=== PATIENT | female | born 1965 | race Caucasian/White ===

== ENCOUNTER 2020-01-05 18:19 | Outpatient (CLI) | payer OTHER, SELFPAY ==
--- NOTE | ~2020-01-05 | XR_ITS ---
EXAMINATION: XR shoulder LT min 2V DATE: 01/05/2020 18:45 INDICATION: Left shoulder pain TECHNIQUE: AP internally and externally rotated, AP oblique externally rotated and axillary views of the left shoulder were obtained. COMPARISON: None FINDINGS: Normal alignment. No fracture. Glenohumeral joint is normal. Acromioclavicular joint is normal. Soft tissues are unremarkable. Visualized lungs are clear. IMPRESSION: Negative left shoulder radiographs. Reviewed, dictated and finalized at location A. GUARD
== END 2020-01-05 18:20 | disposition home or self-care (01) ==
LOC: ANHIMG 18:21
PROVIDERS: PCP Family Medicine; Visit Provider Orthopaedic Surgery
DX: M25.512 Pain in left shoulder (principal)
CPT/HCPCS: 73030

== ENCOUNTER 2020-04-16 15:30 | Outpatient (RCR) | payer OTHER, SELFPAY ==
[2020-01-25 12:32] VITALS: BP_SYST 110
--- NOTE | 2020-01-25 16:07 | PTOPEVAL ---
Thank you for referring this patient to [facility]. Please review, sign, date and return this plan of care ANMOL. Pt referred to therapy due to left shoulder adhesive capsulitis. She demonstrates impairments related to left shoulder range, strength, pain and function. Requires additional skilled PT 2-3x/wk x 8 wk. I agree with and certify that the following plan of care is medically necessary. Referring Physician Date Attending Provider: Suhas Contreras MD Referring Provider: *PT Outpatient Evaluation Start: 01/25/20 12:31 Freq: Status: Active Protocol: Document 01/25/20 12:32 CAP (Rec: 01/25/20 13:29 CAP [email or web address]) Therapy Assessment Status Assessment Status Assessment Status Evaluation Outpatient Past Medical History Past Medical History Past Medical History Status Patient Denies Significant Past Medical History Evaluation Information Problem Diagnosis left shoulder adhesive capsulitis Onset 09/17 Cause following injections Subjective Information Reports her left shoulder Query Text:As Reported By Patient/ problems started after she Family received the flu shot. The MD believes the injection was given into the shoulder joint vs the muscles. She reports problems with reaching of left UE in all direction. She is unable to reach overhead. She has difficulty with sleeping regardless of position. She is limited with her workout routine due to the pain. She has difficulty with ADL's. Denies pain changes with sitting or driving. She received a cortison injection on 01/12/20 with improved pain and toyin with reaching act. 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
--- NOTE | 2020-02-07 16:44 | PCPTNOTE ---
Patient did not show up for scheduled appointment this date.
--- NOTE | 2020-02-21 12:40 | PCPTNOTE ---
Patient just called & rescheduled appointment this date due to a meeting.[ ]
[2020-02-23 12:41] VITALS: BP_SYST 140
--- NOTE | 2020-02-23 13:37 | PTOPEVAL ---
Thank you for referring this patient to [facility]. Please review, sign, date and return this plan of care ANMOL. Pt demonstrates progress with impairments related to left shoulder. She demonstrates improved range, strength, and function. She requires additional skilled therapy 2x/wk x 6 wk to achieve therapy goals. I agree with and certify that the following plan of care is medically necessary. Referring Physician Date Attending Provider: Suhas Contreras MD Referring Provider: *PT Outpatient Re-Evaluation Start: 01/25/20 12:31 Freq: Status: Active Protocol: Document 02/23/20 12:41 CAP (Rec: 02/23/20 13:25 CAP [email or web address]) Therapy Assessment Status Assessment Status Assessment Status Re-evaluation Evaluation Information Problem Diagnosis left shoulder adhesive capsulitis Onset 09/17 Subjective Information Reports cont pain and Query Text:As Reported By Patient/ limitations with reaching in Family all directions. She is able to reach further overhead. She is able to don her bra and coat better. she is limited with her toyin with her normal fitness routine due to pain with overhead or reaching motion. Her current HEP cont to be limited and painful. She will wake with UE pain depending on her UE position. Pain Assessment Timing of Pain Assessment Timing of Pain Assessment Re-assessment Pain Scale Pain Scale Used Numeric (1 - 10) Self Report Pain Assessment Left Shoulder(s) Reported Pain Level 2 Pain Description Aching,Tender on Palpation, Tightness Pain Frequency Continuous Lowest Pain Intensity 2 Greatest Pain Intensity 10 Pain Aggravating Factors Prolonged Position,Other Pain Aggravating Factors Other Pain Aggravating Factors movement Pain Behaviors None Pain Relief Interventions Used By Inactivity/Rest,TENS Patient Pain Score Pain Score 2: Self Report Upper Extremity Range of Motion Scapular/ Shoulder Range of Motion Left Scapular: Retraction Hypomobile Scapular: Protraction Hypermobile Scapular Downward Rotation Hypomobile Scapular Upward Rotation Hypomobile Shoulder Flexion - Active 138 Shoulder Flexion - Passive 145 Shoulder Extension - Active 35 Shoulder Abduction - Act
--- NOTE | 2020-03-23 16:11 | PTOPEVAL ---
Thank you for referring Alison Barahona to [facility]. Please review, sign, date and return this plan of care ANMOL. Pt has been seen for 15 therapy visits from 01/25/20-03/23/20 to address impairments related to left shoulder. She demonstrates significant progress with shoulder range, pain and UE function. She continues to demonstrate shoulder and scapular weakness that requires additional skilled therapy. Recommend cont PT 1x/wk x 4 wk. I agree with and certify that the following plan of care is medically necessary. Referring Physician Date Attending Provider: Suhas Contreras MD Referring Provider: *PT Outpatient Evaluation Start: 01/25/20 12:31 Freq: Status: Active Protocol: Document 03/23/20 13:28 HELENE (Rec: 03/23/20 14:10 HELENE [email or web address]) Therapy Assessment Status Assessment Status Re-evaluation Evaluation Information Problem Diagnosis left shoulder adhesive capsulitis Onset 09/17 Cause following injections Subjective Information Cont pain with reaching Query Text:As Reported By Patient/ overhead and behind her back. Family States she is still limited with these motions. She is able to don her bra and coat better. She reports improved shoulder motion after stretching. She reports improved toyin with fitness program with arm motion. She is not having diffuclty with work activities or sleeping. Pain Assessment Timing of Pain Assessment Timing of Pain Assessment Assessment Pain Scale Pain Scale Used Numeric (1 - 10) Self Report Pain Assessment Left Shoulder(s) Reported Pain Level 0 Pain Description With Movement Pain Frequency Intermittent Lowest Pain Intensity 0 Greatest Pain Intensity 10 Pain Score Pain Score 0: Self Report Upper Extremity Range of Motion Scapular/ Shoulder Range of Motion Left Scapular: Retraction Hypomobile Scapular: Protraction Hypermobile Scapular Downward Rotation Hypomobile Scapular Upward Rotation Hypomobile Shoulder Flexion - Active 160 Shoulder Extension - Active 50 Shoulder Abduction - Active 164 Shoulder Medial Rotation - Active 70 Shoulder Medial Rotation - Active T8 Query Text:Reach Behind the Back Shoulder Lateral Rotation - Active 74 Shoulder Lateral Rotation - Active T1 Query Text:Reach Behind the Head Scapular/Shoulder Range of Pradeep
--- NOTE | 2020-04-16 16:24 | PTOPEVAL ---
Thank you for referring Alison Barhaona to [facility]. Please review, sign, date and return this plan of care ANMOL. Pt has received 19 therapy visits to address left shoulder impairments. She reports improved pain and UE function with daily activities. She demonstrates normal shoulder range and strength. She is indep with a HEP to maintain her level of function. Goals have been met. DC skilled therapy at this time. I agree with and certify that the following plan of care is medically necessary. Referring Physician Date Attending Provider: Suhas Contreras MD Referring Provider: Discharge Summary *PT Outpatient Evaluation Start: 01/25/20 12:31 Freq: Status: Active Protocol: Document 04/16/20 15:36 CAP (Rec: 04/16/20 16:16 [facility] [email or web address]) Therapy Assessment Status Assessment Status Assessment Status Re-evaluation Evaluation Information Problem Diagnosis left shoulder adhesive capsulitis Onset 09/17 Cause following injections Subjective Information Reports she has been Query Text:As Reported By Patient/ inconsistent with performing Family her HEP. Reports intermittent sharp shoulder pain with various reaching motions. Denies any problems with donning/doffing clothes. States she will have occasional sharp shoulder pain with various reaching motions . She is not having diffuclty with work activities or sleeping. Pain Assessment Timing of Pain Assessment Timing of Pain Assessment Re-assessment Pain Scale Pain Scale Used Numeric (1 - 10) Self Report Pain Assessment Left Shoulder(s) Reported Pain Level 0 Pain Description Sharp Pain Frequency Intermittent Lowest Pain Intensity 0 Greatest Pain Intensity 9 Pain Aggravating Factors Other Pain Aggravating Factors Other Pain Aggravating Factors reaching motion Pain Score Pain Score 0: Self Report Upper Extremity Range of Motion Scapular/ Shoulder Range of Motion Right Shoulder Flexion - Active 170 Shoulder Extension - Active 35 Shoulder Abduction - Active 170 Shoulder Medial Rotation - Active 70 Shoulder Medial Rotation - Active T8 Query Text:Reach Behind the Back Shoulder Lateral Rotation - Active 90 Shoulder Lateral Rotation - Active T2 Query Text:Reach Behind the Head Left Scapular: Retraction Hypomobile Scapular: Protraction Hypermobile Scapular Downward Rotation
== END 2020-04-18 08:33 | disposition home or self-care (01) ==
LOC: ANHPT 15:30
PROVIDERS: PCP Family Medicine; Visit Provider Orthopaedic Surgery
DX: M75.02 Adhesive capsulitis of left shoulder (principal)
CPT/HCPCS: 97014; 97110; 97112; 97140; 97161; G0283

== ENCOUNTER 2020-05-08 07:30 | Outpatient (CLI) | payer OTHER, SELFPAY ==
[2020-05-08 09:28] LABS: Free T4 Free Thyroxine 0.69 ng/mL (0.78-2.19)
[2020-05-10 21:56] LABS: Triiodothyronine T3 Free 5.5 pg/mL (2.3-4.2)
== END 2020-05-08 07:31 | disposition home or self-care (01) ==
PROVIDERS: PCP Family Medicine; Visit Provider Internal Medicine Endocrinology, Diabetes & Metabolism
DX: E03.9 Hypothyroidism, unspecified (principal); E04.1 Nontoxic single thyroid nodule
CPT/HCPCS: 36415; 84439; 84443; 84481

== ENCOUNTER 2020-07-27 13:10 | Outpatient (CLI) | payer OTHER, SELFPAY ==
--- NOTE | ~2020-07-27 | US_ITS ---
EXAMINATION: US thyroid DATE: 07/27/2020 13:40 INDICATION: Hypothyroidism TECHNIQUE: Multiple ultrasound images of the thyroid were obtained. COMPARISON: 11/20/18 FINDINGS: The right thyroid lobe measures 2.6 x 0.8 x 0.6 cm. The left thyroid lobe measures 2.2 x 1.0 x 0.7 c m. 7 x 5 x 4 mm wider than tall slightly hypoechoic solid nodule with smooth margins and without ech ogenic foci. (TI-RADS 4, moderately suspicious , FNA if >=1.5 cm, annual followup is >1 cm) in the mi d right thyroid. There is normal echotexture, echogenicity and vascular flow throughout the thyroid g land. IMPRESSION: 1. No significant interval change in a 7 mm TI RADS 4 right thyroid nodule which remains below consen t cysts threshold for biopsy or follow-up. Recommend clinical followup with repeat imaging if there a re changes on physical exam. 2. Chronically atrophic thyroid. Reviewed, dictated and finalized at location A. IMPRESSION: 1. No significant interval change in a 7 mm TI RADS 4 right thyroid nodule whic h remains below consent cysts threshold for biopsy or follow-up. Recommend clin ical followup with repeat imaging if there are changes on physical exam. 2. Chronically atrophic thyroid.
== END 2020-07-27 13:11 | disposition home or self-care (01) ==
PROVIDERS: PCP Family Medicine; Visit Provider Internal Medicine Endocrinology, Diabetes & Metabolism
DX: E03.9 Hypothyroidism, unspecified (principal); E04.1 Nontoxic single thyroid nodule
CPT/HCPCS: 76536

== ENCOUNTER 2020-08-22 11:45 | Outpatient (CLI) | payer OTHER, SELFPAY ==
--- NOTE | ~2020-08-22 | MR_ITS ---
EXAMINATION: MR shoulder LT wo con DATE: 08/22/2020 12:58 INDICATION: Left shoulder pain. TECHNIQUE: Magnetic resonance imaging (MRI) of the left shoulder was performed without intravenous co ntrast. Sequences included axial PD-weighted FS FSE, coronal oblique PD-weighted FS FSE and T2-weight ed FS FSE, and sagittal oblique T2-weighted FS FSE and T1-weighted FSE. COMPARISON: Left shoulder radiographs 01/05/2020 FINDINGS: Coracoacromial arch: The acromion undersurface is flat in morphology (type I). Subacromial spurring is noted. The acromioc lavicular joint is normal. There is mild subacromial/subdeltoid bursitis. Rotator cuff: There is mild supraspinatus tendinopathy. Infraspinatus, teres minor, and subscapularis tendons are n ormal. There is no asymmetric fatty atrophy of the rotator cuff muscle bellies. Biceps tendon and glenoid labrum: Biceps tendon is in bicipital groove. There is mild intra-articular biceps tendinopathy. The glenoid labrum is normal. Fluid: There is no glenohumeral joint effusion. Bones/cartilage: The glenoid cartilage is normal. Humeral head cartilage is normal. IMPRESSION: 1. Mild rotator cuff tendinopathy. No tear. 2. Mild intra-articular biceps tendinopathy. 3. Mild subacromial/subdeltoid bursitis. Reviewed, dictated and finalized at location A.
[2020-08-22 12:21] LABS: Hematocrit 34.5 % (37.0-47.0); Hemoglobin 11.3 g/dL (12.0-15.0); Mean Corpuscular HGB Conc 32.8 g/dl (32-36); Mean Corpuscular Hemoglobin 27.9 pg (26-34); Mean Corpuscular Volume 85.2 fl (80-100); Mean Platelet Volume 11.3 fl (7.4-10.4); Platelet Count Result 179 k/mm3 (150-375); Red Blood Count 4.05 M/mm3 (4.2-5.4); Red Cell Distribution Width 13.7 % (11.5-14.5); White Blood Count 3.3 K/mm3 (4.5-10.0)
[2020-08-22 12:38] LABS: Alanine Aminotransferase 17 U/L (4-35); Albumin Level 4.3 g/dL (3.5-5.1); Alkaline Phosphatase 62 U/L (38-126); Anion Gap 5 mmol/L (8-16); Aspartate Amino Transferase 30 U/L (14-36); Bilirubin,Total 0.3 mg/dL (0.2-1.3); Blood Urea Nitrogen 27 mg/dL (7-17); Calcium 9.1 mg/dL (8.4-10.2); Carbon Dioxide 31 mmol/L (22-30); Chloride 103 mmol/L (98-107); Estimated Glomerular Filt Rate > 60; Glucose 70 mg/dL (65-105); Potassium 3.9 mmol/L (3.4-5.0); Sodium 139 mmol/L (137-145)
[2020-08-22 13:04] LABS: Free T4 Free Thyroxine 0.57 ng/mL (0.78-2.19)
== END 2020-08-22 11:46 | disposition home or self-care (01) ==
PROVIDERS: PCP Family Medicine; Referring Provider Internal Medicine Endocrinology, Diabetes & Metabolism; Visit Provider Orthopaedic Surgery
DX: E03.9 Hypothyroidism, unspecified (principal); M75.52 Bursitis of left shoulder
CPT/HCPCS: 36415; 73221; 80053; 84439; 84443; 85027

== ENCOUNTER → 2021-04-05 00:26 | Outpatient (CLI) | payer OTHER, SELFPAY ==
[2021-04-05 18:42] LABS: SARS-CoV-2 RNA PCR Negative
== END ==
PROVIDERS: PCP Family Medicine; Visit Provider Orthopaedic Surgery
DX: Z01.812 Encounter for preprocedural laboratory examination (principal); Z20.822 Contact with and (suspected) exposure to COVID-19
CPT/HCPCS: C9803; U0003; U0005

== ENCOUNTER 2021-04-08 01:44 | Day surgery (SDC) | payer OTHER, SELFPAY ==
[2021-04-01 14:55] VITALS: BMI 19.8
[2021-04-08] VITALS (7 sets, daily range): BP systolic 93–121; BP diastolic 56–91; PULSE 57–82; RESP 12–18; TEMP 36.3–36.9; O2SAT 96–100; BMI 19.5
--- NOTE | 2021-04-08 07:50 | P.PNAN_ITS ---
Anes - Initial Pre Proc Eval Procedure: Operation Date: 04/08/21 09:00 Proposed Procedures p Left Shoulder Evaluation Under Anesthesia with Cortisone Injection - Suhas Contreras MD Date/Time: 04/08/21 07:50 Surgeon: Suhas Contreras MD Pre Op Diagnosis: left frozen shoulder Patient Data Age: 55 Gender: F Height: 1.55 m Weight: 47.65 kg Allergies Allergy/AdvReac Type Severity Reaction Status Date / Time cefuroxime AdvReac Mild Gastrointestinal Verified 04/08/21 07:20 Upset Home Medications Medication Instructions Recorded Confirmed Type Lactobacillus combo no.23 14 14 cell PO DAILY 01/12/20 04/04/21 History billion cell capsule cholecalciferol (vitamin D3) 50 2,000 unit PO DAILY 01/12/20 04/04/21 History mcg (2,000 unit) capsule digestive enzymes 1 tablet PO DAILY 01/12/20 04/04/21 History melatonin 5 mg capsule 5 mg PO PRN PRN 01/12/20 04/04/21 History multivitamin 1 tablet PO DAILY 01/12/20 04/04/21 History omega-3 fatty acids-fish oil 340 1 cap PO DAILY 01/12/20 04/04/21 History mg-1,000 mg capsule thyroid (pork) 60 mg tablet 60 mg PO DAILY #90 tablet 01/31/21 04/04/21 Rx sertraline 2.5 mg PO DAILY 04/01/21 04/04/21 History Patient hx anesthesia problems: none Family hx anesthesia problems: none PMFSH Past Medical History Medical History (Updated 04/08/21 @ 07:14 by Crow Amezcua DO) Arthritis Depression Hypothyroidism (acquired) Surgical History Surgical History History of oophorectomy Hx of tonsillectomy Social History Social History Smoking status: Never smoker Alcohol intake: never Living arrangements: with family Additional living arrangements comments: and Children 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 Gender identity (if verbalized by the patient): Female Spiritual care concerns: No Anes - Eval Final PreProcedure Day of Procedure 04/08/21 07:50 Patient weight: thin Heart: regular rate and rhythm Lungs: clear to auscultation and normal air movement Airway: Mallampati scale class II Neurological: alert and oriented Last oral intake: >/= 8 hours ASA classification: II Emergent: no Anesthetic plan: proceed Anesthesia type and monitoring: general and standard monitoring Informed Consent: The patient's anesthetic plan and its attendant risks and benefits were discussed with the patient/family/POA. Questions were solicited and answers provided to the satisfaction of the patient/family/POA.
[2021-04-08] MEDS: ACETAMINOPHEN 500 MG TABLET 1000 MG PO (08:13)
[2021-04-08] MEDS: LACTATED RINGERS 1,000 ML 30 ML IV CONT (08:13)
[2021-04-08] MEDS: KETOROLAC 15 MG/ML VIAL (*BKC) IV PUSH (08:14)
--- NOTE | 2021-04-08 08:31 | WPDHPUPDATE1 ---
History and Physical Update Update Date/Time: 04/08/21 08:31 History and Physical has been reviewed, including an updated exam of the patient. There are NO changes in the patient's condition. Risks, benefits, and alternatives have been discussed and questions answered. Patient agrees to proceed with procedure.
[2021-04-08] MEDS: ceFAZolin 2 GM/D5W 50 ML 2 GM/50 ML BAG IVPB (08:50)
[2021-04-08] MEDS: TRIAMCINOLONE ACET INJ SUSP 50 MG/5 ML VIAL 20 MG IM (09:01)
--- NOTE | 2021-04-08 09:14 | PM.PROC ---
Procedure Note - Detailed Date of procedure: 04/08/21 Pre-op diagnosis: left frozen shoulder Post-op diagnosis: same Procedure performed: Left shoulder evaluation under anesthesia with manipulation and intra-articular injection Description of procedure: The patient was identified and proper site identified. She was taken back to the operating room and left on the patient gurney. After general IV sedation was administered, the left shoulder was evaluated. Initial elevation was 120?, internal rotation 15?, external rotation 45?. After a gentle manipulation range of motion was again assessed. Elevation was 180?, external rotation 90?, internal rotation 80?. This was carried out in an atraumatic fashion. The shoulder joint was then injected intra-articularly with 2 mL of 1% lidocaine and 20 mg of Kenalog without incident. She tolerated the procedure well. She was awakened and taken back to recovery area in stable condition. There were no known intraoperative complications. Surgeon: Suhas Contreras MD Estimated blood loss (mL): 0 Drains: No Packing: No Pathology: none sent Complications: No immediate complications Condition: stable Disposition: PACU
[2021-04-08] MEDS: fentaNYL CITRATE INJ (*CRX) 100 MCG/2 ML VIAL 25 MCG IV PUSH ×2 (09:31→10:00)
== END 2021-04-08 10:50 | disposition home or self-care (01) ==
PROVIDERS: PCP Family Medicine; Visit Provider Orthopaedic Surgery
PROC: (CPT 23700; principal; 2021-04-08 09:00)
DX: M75.02 Adhesive capsulitis of left shoulder (principal); E03.9 Hypothyroidism, unspecified; F32.9 Major depressive disorder, single episode, unspecified
CPT/HCPCS: 23700; A9270; C9803; J0690; J1030; J1040; J1100; J1170; J1885; J2250; J2405; J2704; J3010; J3301; J7120; U0003; U0005

== ENCOUNTER 2021-07-22 13:47 | Outpatient (CLI) | payer SELFPAY ==
[2021-08-13 11:32] LABS: Kit Draw Collected
== END 2021-07-22 13:48 | disposition home or self-care (01) ==
PROVIDERS: PCP Family Medicine
DX: M04.9 Autoinflammatory syndrome, unspecified (principal); E61.1 Iron deficiency; F06.8 Other specified mental disorders due to known physiological condition
CPT/HCPCS: 36415

== ENCOUNTER → 2021-07-30 13:10 | Outpatient (CLI) | payer OTHER, SELFPAY ==
--- NOTE | ~2021-07-30 | DEXA_ITS ---
Bone Density Report Name: Alison Barahona Age: 55 Sex: Female Ethnicity: White Date of : 1965 Indication: postmenopausal; screening for osteoporosis; Referring Provider: BARAK, RODNEY Study: Bone densitometry was performed. Exam Date: July 30, 2021 Accession number: [id number] Bone Density: Region BMD T-score Z-score Classification AP Spine (L1-L4) 0.931 -1.1 0.2 Osteopenia Femoral Neck (Left) 0.620 -2.1 -0.9 Osteopenia Total Hip (Left) 0.793 -1.2 -0.4 Osteopenia Femoral Neck (Right) 0.613 -2.1 -1.0 Osteopenia Total Hip (Right) 0.762 -1.5 -0.7 Osteopenia Total Hip Mean 0.778 -1.4 -0.6 Osteopenia World Health Organization criteria for BMD impression classify patients as: Normal (T-score at or above -1.0), Osteopenia (T-score between -1.0 and -2.5), or Osteoporosis (T-score at or below -2.5). 10-year Fracture Risk(1): Major Osteoporotic Fracture 7.6% Hip Fracture 1.0% Reported Risk Factors: [place] (), Neck BMD=0.613, BMI=19.2 (1) FRAX(R) Version 3.08. Fracture probability calculated for an untreated patient. Fracture probability may be lower if the patient has received treatment. Clinical Information Provided by Patient: Has used the following medications: Vitamin D Patient maximum height was 62 Menopause Age: 43 Does not regularly consume dairy products Onset of menses at age 11 Number of children 2 Impression: The patient has low bone mass, based on the Left Femoral Neck T-score. The patient has an estimated ten-year risk of hip fracture of 1% and an estimated ten-year risk of major fracture of 7.6%, based on the WHO FRAX algorithm. Discussion: BONE DENSITY IS LOW AT ONE OR MORE SKELETAL SITES. This patient's lowest T-score is low at one or more skeletal sites. It meets the World Health Organization's (WHO) criteria for ?low bone mass? (T-score between -1.0 and -2.5). The patient's 10-year risk of fracture as calculated by FRAX is less than the threshold where pharmacological therapy is recommended by the National Osteoporosis Foundation (NOF). However, all treatment decisions require clinical judgment and consideration of individual patient factors, including patient preferences, comorbidities, previous drug use, risk factors not captured in the FRAX model (e.g., frailty, falls, vitamin D deficiency, increased bone turnover, interval significant decline in bone density) and possible under or overestimation of fracture risk by FRAX. The patient should follow a healthful lifestyle (good nutrition with adequate calcium and vitamin D, and appropriate weight-bearing exercise). Follow-Up: Consider repeating this study in 2 to 3 years to reassess this patient's status, or sooner if there is some new clinical indication. Reported by: TYRELL on 07/30/2021 1:42:00 PM.
== END ==
PROVIDERS: PCP Family Medicine; Visit Provider Nurse Practitioner
DX: M85.88 Other specified disorders of bone density and structure, other site (principal); M85.852 Other specified disorders of bone density and structure, left thigh; M85.851 Other specified disorders of bone density and structure, right thigh
CPT/HCPCS: 77080

== ENCOUNTER → 2021-10-03 14:02 | Outpatient (CLI) | payer OTHER, SELFPAY ==
--- NOTE | ~2021-10-03 | XR_ITS ---
XR elbow LT 2V DATE: 10/03/2021 14:50 INDICATION: Multiple joint pain. Left elbow pain. TECHNIQUE: AP and lateral views COMPARISON: 10/06/2017 left elbow FINDINGS: No fracture or dislocation or joint effusion. No periosteal reaction or bone destruction. IMPRESSION: Negative Reviewed, dictated and finalized at location A. IMPRESSION: Negative
--- NOTE | ~2021-10-03 | XR_ITS ---
XR hand LT 2V DATE: 10/03/2021 14:50 INDICATION: Multiple joint pain. Left hand pain. TECHNIQUE: AP and lateral views COMPARISON: None FINDINGS: No fracture or dislocation, periosteal reaction or bone destruction, erosive change or pratibha drocalcinosis. IMPRESSION: No significant abnormality Reviewed, dictated and finalized at location A. IMPRESSION: No significant abnormality
--- NOTE | ~2021-10-03 | XR_ITS ---
XR knee RT 2V DATE: 10/03/2021 14:50 INDICATION: Multiple joint pain. Right knee pain. TECHNIQUE: Standing AP and lateral views COMPARISON: None FINDINGS: There is slight particular spurring of the patella consistent with osteoarthritis. No fract ure or dislocation or joint effusion. No periosteal reaction or bone destruction. No radiopaque intra -articular loose body or chondrocalcinosis. IMPRESSION: Patellofemoral slight osteoarthritis Reviewed, dictated and finalized at location A.
--- NOTE | ~2021-10-03 | XR_ITS ---
XR elbow RT 2V DATE: 10/03/2021 14:50 INDICATION: Multiple joint pain. Right elbow pain. TECHNIQUE: AP and lateral views COMPARISON: None FINDINGS: No fracture or dislocation or joint effusion. No periosteal reaction or bone destruction. IMPRESSION: Negative Reviewed, dictated and finalized at location A. IMPRESSION: Negative
--- NOTE | ~2021-10-03 | XR_ITS ---
XR hand RT 2V DATE: 10/03/2021 14:51 INDICATION: Multiple joint pain. Right hand pain. TECHNIQUE: AP and lateral views COMPARISON: None FINDINGS: No fracture, dislocation, periosteal reaction or bone destruction, joint space narrowing, e rosive change or chondrocalcinosis. IMPRESSION: Negative Reviewed, dictated and finalized at location A. IMPRESSION: Negative
--- NOTE | ~2021-10-03 | XR_ITS ---
XR knee LT 2V DATE: 10/03/2021 14:50 INDICATION: Multiple joint pain. Left knee pain. TECHNIQUE: Standing AP and lateral views COMPARISON: None FINDINGS: No fracture or dislocation or joint effusion. No periosteal reaction or bone destruction. N o joint space narrowing. No radiopaque interarticular loose body or chondrocalcinosis. IMPRESSION: Negative Reviewed, dictated and finalized at location A. IMPRESSION: Negative
== END ==
PROVIDERS: PCP Family Medicine; Visit Provider Internal Medicine Rheumatology
DX: M25.50 Pain in unspecified joint (principal); M17.11 Unilateral primary osteoarthritis, right knee
CPT/HCPCS: 73070; 73120; 73560

== ENCOUNTER 2022-03-20 14:55 | Outpatient (CLI) | payer OTHER, SELFPAY ==
[2022-03-20 17:33] LABS: Free T4 Free Thyroxine 0.75 ng/mL (0.78-2.19)
[2022-03-20 17:47] LABS: Thyroid Stimulating Hormone 0.971 uIU/mL (0.465-4.680)
== END 2022-03-20 14:56 | disposition home or self-care (01) ==
LOC: ANHWCLAB 14:58
PROVIDERS: PCP Family Medicine; Visit Provider Internal Medicine Endocrinology, Diabetes & Metabolism
DX: E03.9 Hypothyroidism, unspecified (principal); Z15.01 Genetic susceptibility to malignant neoplasm of breast; Z15.02 Genetic susceptibility to malignant neoplasm of ovary; Z15.89 Genetic susceptibility to other disease
CPT/HCPCS: 36415; 84439; 84443

== ENCOUNTER → 2022-04-02 13:56 | Outpatient (CLI) | payer OTHER, SELFPAY ==
--- NOTE | ~2022-04-02 | US_ITS ---
EXAMINATION: US transvaginal DATE: 04/02/2022 14:36 INDICATION: Chromosomal abnormality, CHEK 2 TECHNIQUE: Multiple endovaginal sonographic images of the pelvis were obtained. COMPARISON: 08/21/2017 FINDINGS: The uterus measures 7.7 x 3.2 x 3.5 cm. The endometrial complex measures 5 mm. Bowel gas ob scures visualization of the ovaries. No adnexal abnormality is seen. There is no free fluid in the pe lvis. IMPRESSION: 1. Unremarkable pelvic ultrasound. Reviewed, dictated and finalized at location A.
== END ==
PROVIDERS: PCP Family Medicine; Visit Provider Obstetrics & Gynecology Gynecology
DX: Q99.9 Chromosomal abnormality, unspecified (principal); E05.90 Thyrotoxicosis, unspecified without thyrotoxic crisis or storm
CPT/HCPCS: 76830

== ENCOUNTER → 2022-04-02 13:57 | Outpatient (CLI) | payer OTHER, SELFPAY ==
--- NOTE | ~2022-04-02 | US_ITS ---
EXAMINATION: US thyroid DATE: 04/02/2022 14:36 INDICATION: Hypothyroidism, unspecified. TECHNIQUE: Multiple ultrasound images of the thyroid were obtained. COMPARISON: Ultrasound 07/19/2020, 11/17/2017 FINDINGS: The right thyroid lobe measures 2.6 x 0.7 x 0.8 cm. The left thyroid lobe measures 2.7 x 0.6 x 1.0 c m. In the right thyroid lobe, there is a 9 mm solid, hypoechoic, [id number] nodule with smooth margin without echogenic foci (TI-RADS TR4). IMPRESSION: 1. Small thyroid nodule, likely not clinically significant. No follow-up is needed. Reviewed, dictated and finalized at location B. IMPRESSION: 1. Small thyroid nodule, likely not clinically significant. No follow-up is nee ded.
== END ==
PROVIDERS: PCP Family Medicine; Visit Provider Internal Medicine Endocrinology, Diabetes & Metabolism
DX: Q99.9 Chromosomal abnormality, unspecified (principal); E04.1 Nontoxic single thyroid nodule; E03.9 Hypothyroidism, unspecified
CPT/HCPCS: 76536

== ENCOUNTER → 2022-04-16 16:16 | Outpatient (CLI) | payer OTHER, SELFPAY ==
--- NOTE | ~2022-04-16 | MM_ITS ---
EXAMINATION: MM screening [facility] BI w mary jo HISTORY: Screening mammogram TECHNIQUE: Craniocaudal and mediolateral oblique 3-D tomosynthesis images were obtained and synthetic 2-D images were generated. CAD analysis was submitted and interpreted. COMPARISON: 01/03/2009, 12/16/2007 BREAST PARENCHYMAL COMPOSITION: The breasts are extremely dense, which lowers the sensitivity of mamm ography. FINDINGS: RIGHT BREAST: There are grouped calcifications in the posterior third of the upper outer quadrant of the right breast. LEFT BREAST: There is no suspicious mass, calcification, or architectural distortion to suggest malig lovely. There has been no significant interval change. IMPRESSION: 1. Grouped calcifications of the right breast. 2. Magnification views are recommended. BI-RADS Category 0: Incomplete: Needs additional imaging evaluation. Reviewed, dictated and finalized at location A.
== END ==
PROVIDERS: PCP Family Medicine; Visit Provider Nurse Practitioner
DX: Z12.31 Encounter for screening mammogram for malignant neoplasm of breast (principal); R92.8 Other abnormal and inconclusive findings on diagnostic imaging of breast
CPT/HCPCS: 77063; 77067

== ENCOUNTER → 2022-05-06 08:09 | Outpatient (CLI) | payer OTHER, SELFPAY ==
--- NOTE | ~2022-05-06 | MM_ITS ---
EXAMINATION: MM diagnostic mammo unilat RT HISTORY: Right breast calcifications on screening mammogram TECHNIQUE: Magnification views of the right breast were performed and synthetic 2-D images were gener ated. CAD analysis was submitted and interpreted. COMPARISON: 04/16/2022, 01/03/2009, 12/16/2007 FINDINGS: There are grouped amorphous calcifications in the posterior third of the upper outer quadra nt right breast 11:00 location 5 cm from the nipple. No associated mass is identified. IMPRESSION: 1. Indeterminate right breast calcifications. 2. Stereotactic biopsy is recommended. BI-RADS category 4, suspicious findings. Reviewed, dictated and finalized at location A.
== END ==
PROVIDERS: PCP Family Medicine; Visit Provider Obstetrics & Gynecology Gynecology
DX: R92.8 Other abnormal and inconclusive findings on diagnostic imaging of breast (principal)
CPT/HCPCS: 77065

== ENCOUNTER → 2022-10-28 15:36 | Outpatient (CLI) | payer OTHER, SELFPAY ==
--- NOTE | ~2022-10-28 | XR_ITS ---
EXAMINATION: XR chest 2V 10/28/2022 16:06 INDICATION: Fever. PROCEDURE: 2 view chest COMPARISON: 08/09/2014 FINDINGS: The lungs are clear. The cardiomediastinal silhouette is within normal limits. There are no pleural effusions. There is no pneumothorax suspected. There is a calcified granuloma in the lef t lung base. IMPRESSION: 1: NO ACUTE CARDIOPULMONARY DISEASE. Reviewed, dictated and finalized at location A. [employer]
== END ==
PROVIDERS: PCP Family Medicine; Visit Provider Internal Medicine Hematology & Oncology
DX: R50.9 Fever, unspecified (principal); R05.8 Other specified cough
CPT/HCPCS: 71046

== ENCOUNTER → 2023-10-02 15:52 | Outpatient (CLI) | payer BC, SELFPAY ==
--- NOTE | ~2023-10-02 | US_ITS ---
US thyroid INDICATION: Nontoxic thyroid nodule TECHNIQUE: Real-time sonographic images of the thyroid gland were obtained. COMPARISON: Ultrasound dated 04/02/2022 FINDINGS: The right thyroid lobe measures 2.4 x 0.7 x 0.7 cm. The left thyroid lobe measures 2.6 x 0 .9 x 1.7 cm. There is normal echotexture and echogenicity throughout the thyroid gland. In the right lobe there is an oval solid hypoechoic 8mm mass which is wider than tall, smoothly marginated without echogenic foci, TR 4. No new masses. Normal vascular flow is present. IMPRESSION: 1. Stable right thyroid nodule measuring 8 mm, TR 4, likely benign. Reviewed, dictated and finalized at location A.
== END ==
PROVIDERS: PCP Family Medicine; Visit Provider Internal Medicine Endocrinology, Diabetes & Metabolism
DX: E04.1 Nontoxic single thyroid nodule (principal); Z15.01 Genetic susceptibility to malignant neoplasm of breast; Z15.02 Genetic susceptibility to malignant neoplasm of ovary; Z15.09 Genetic susceptibility to other malignant neoplasm; Z15.89 Genetic susceptibility to other disease
CPT/HCPCS: 76536

== ENCOUNTER 2024-03-28 16:11 | Outpatient (CLI) | payer BC, SELFPAY ==
[2024-03-28 17:06] LABS: Immunoglobulin A 127 mg/dL (70-400); Immunoglobulin G 1905 mg/dL (700-1600); Immunoglobulin M 71 mg/dL (40-230)
== END 2024-03-28 16:12 | disposition home or self-care (01) ==
LOC: ANHLAB 16:12
PROVIDERS: PCP Family Medicine; Visit Provider Internal Medicine Hematology & Oncology
DX: D83.9 Common variable immunodeficiency, unspecified (principal)
CPT/HCPCS: 36415; 82784

== ENCOUNTER 2024-03-28 16:28 | Outpatient (CLI) | payer BC, SELFPAY ==
--- NOTE | ~2024-03-28 | XR_ITS ---
EXAMINATION: XR chest 2V 03/28/2024 16:39 INDICATION: Productive cough PROCEDURE: 2 view chest COMPARISON: 10/28/2022 FINDINGS: The lungs are clear. The cardiomediastinal silhouette is within normal limits. There are no pleural effusions. There is no pneumothorax suspected. IMPRESSION: 1: NO ACUTE CARDIOPULMONARY DISEASE. Reviewed, dictated and finalized at location B.
== END 2024-03-28 16:29 ==
LOC: MICIMG 16:30
PROVIDERS: PCP Family Medicine; Visit Provider Internal Medicine Hematology & Oncology
DX: R05.8 Other specified cough (principal)
CPT/HCPCS: 71046